=== PATIENT | female | born 1970 | race Caucasian/White ===

== ENCOUNTER 2016-11-04 20:03 | Emergency (ER) | payer MEDICARE ==
[2015-12-21 17:13] VITALS: BMI 26.4
[~2016-11-04 20:03] MED LIST: BACLOFEN20 M1 PO; BUTALB-APAP-CA1 EACH PO; CLONAZEPAM2 MG/TAB PO; CYMBALTA60 MG PO; DEMEROL50 MG PO; HYDROCODONE-APA1 TAB PO; KLONOPIN1 MG PO; LAMICTAL150 MG PO; ROBAXIN-750750 MG PO; SEROQUEL100 MG PO; VENTOLIN HFA18 GM INH; VISTARIL50 MG PO; VOLTAREN75 MG PO
== END 2016-11-04 22:02 | disposition home or self-care (01) ==
LOC: D.ER 20:03
DX: F41.0 Panic disorder [episodic paroxysmal anxiety] (principal); R21 Rash and other nonspecific skin eruption; Z85.841 Personal history of malignant neoplasm of brain; Z85.05 Personal history of malignant neoplasm of liver

== ENCOUNTER 2016-11-08 20:36 | Emergency (ER) | payer MEDICARE ==
[2015-12-21 17:13] VITALS: BMI 26.4
[2016-11-09 00:04] LABS: APPEARANCE CLEAR (CLEAR); COLOR YELLOW (YELLOW); SPECIFIC GRAVITY 1.015 (1.005-1.020)
[2016-11-09 00:05] LABS: BACTERIA FEW /hpf (NONE SEEN); BILIRUBIN NEGATIVE (NEGATIVE); EPITHELIAL CELLS 0-5 /hpf (0-5); GLUCOSE NEGATIVE (NEGATIVE); KETONE NEGATIVE (NEGATIVE); LEUKOCYTE ESTERASE TRACE (NEGATIVE); NITRITE NEGATIVE (NEGATIVE); PROTEIN NEGATIVE (NEGATIVE); RED CELLS - URINE NONE SEEN /hpf (0-5); UROBILINOGEN NORMAL (NORMAL); WHITE CELLS - URINE 0-5 /hpf (0-5)
[2016-11-09 01:23] LABS: HCG URINE NEGATIVE (NEGATIVE)
[2016-11-09 01:48] LABS: BASOPHILS 0.3 % (0-2); EOSINOPHILS 2.3 % (0-7); HEMATOCRIT 45.7 % (36.0-48.0); HEMOGLOBIN 15.3 g/dL (12-16); IMMATURE GRANULOCYTES 0.1 % (0-5); LYMPHOCYTES 47.8 % (15-50); MCH 30.2 pg (26.0-34.0); MCHC 33.5 g/dL (31.0-37.0); MCV 90.3 fL (80.0-100.0); MEAN PLATELET VOLUME 10.3 fL (7.4-10.4); MONOCYTES 5.2 % (2-11); NEUTROPHILS 44.3 % (40-80); PLATELET COUNT 240 10x3/uL (130-400); RBC 5.06 10x6/uL (4.00-5.40); WBC 9.1 10x3/uL (4.8-10.8)
[2016-11-09 01:59] LABS: ALBUMIN 3.8 g/dL (3.4-5.0); ALKALINE PHOSPHATASE 79 U/L (46-116); ALT (SGPT) 23 U/L (10-68); CALC OSMOLALITY 280 mosm/kg (275-300); CALCIUM 8.6 mg/dL (8.5-10.1); CARBON DIOXIDE 26.6 mmol/L (21.0-32.0); CHLORIDE - SERUM 104 mmol/L (98-107); CREATININE - SERUM 0.8 mg/dL (0.6-1.3); GLUCOSE 79 mg/dL (74-106); POTASSIUM - SERUM 3.5 mmol/L (3.5-5.1); PROTEIN - SERUM 7.3 g/dL (6.4-8.2); SODIUM 142 mmol/L (136-145); UREA NITROGEN 9 mg/dL (7-18); eGFR NON AFRICAN AMERICAN 82 mL/min (90-120)
[2016-11-09 02:17] LABS: AMYLASE - SERUM 26 U/L (25-115); CKMB 1.4 U/L (0.0-3.6); CREATINE KINASE 323 UL (21-215); LIPASE 143 U/L (73-393); TROPONIN-I < 0.017 ng/mL (0.000-0.060)
[2016-11-09 02:54] LABS: UDS - AMPHET POSITIVE QUAL (NEGATIVE); UDS - BARB NEGATIVE QUAL (NEGATIVE); UDS - BENZO NEGATIVE QUAL (NEGATIVE); UDS - COCAINE NEGATIVE QUAL (NEGATIVE); UDS - METH NEGATIVE QUAL (NEGATIVE); UDS - OPIATE NEGATIVE QUAL (NEGATIVE); UDS - PCP NEGATIVE QUAL (NEGATIVE); UDS - THC POSITIVE QUAL (NEGATIVE)
== END 2016-11-09 04:20 | disposition home or self-care (01) ==
LOC: D.ER 20:36
PROVIDERS: Family Medicine
DX: R10.12 Left upper quadrant pain (principal); M94.0 Chondrocostal junction syndrome [Tietze]; F17.200 Nicotine dependence, unspecified, uncomplicated; R00.1 Bradycardia, unspecified

== ENCOUNTER 2017-08-11 20:07 | Emergency (ER) | payer MEDICARE ==
[2015-12-21 17:13] VITALS: BMI 26.4
== END 2017-08-12 00:12 | disposition home or self-care (01) ==
LOC: D.ER 20:07
DX: J20.9 Acute bronchitis, unspecified (principal); F17.200 Nicotine dependence, unspecified, uncomplicated